=== PATIENT | male | born 1970 | race Two or more races ===

== ENCOUNTER 2023-11-14 13:29 | Inpatient (IN) | payer SELFPAY ==
[~2023-11-14] VITALS: Ht 167.6 cm; Wt 76.9 kg
[2023-11-14] MEDS ORDERED: SODIUM CHLORIDE 0.9% 1,000 ML IV ONE (13:45)
[2023-11-14 14:24] LABS: BASOPHILS % 0.3 % (0.0-2.0); EOSINOPHILS % 7.1 % (0.0-5.0); HEMATOCRIT. 43.5 % (42.0-52.0); HEMOGLOBIN. 15.3 g/dL (14.0-18.0); LYMPHOCYTES % 38.7 % (20.0-50.0); MEAN CORPUSCULAR HEMOGLOBIN 32.4 pg (28.0-32.0); MEAN CORPUSCULAR HGB CONC 35.2 g/dL (31.0-37.0); MEAN CORPUSCULAR VOLUME 92.1 fL (80.0-94.0); MEAN PLATELET VOLUME 8.7 fl (7.4-10.4); NEUTROPHILS % 48.9 % (40.0-76.0); PLATELET 379 x1000/uL (130-400); RED BLOOD CELL COUNT 4.73 mill/uL (4.7-6.1); RED CELL DISTRIBUTION WIDTH 13.1 % (11.6-14.6); WHITE BLOOD COUNT 10.2 x1000/uL (4.5-11.0)
[2023-11-14 15:16] LABS: ALANINE AMINOTRANSFERASE 35 IU/L (10-49); ALBUMIN 3.8 g/dL (3.2-4.8); ASPARTATE AMINOTRANSFERASE 22 IU/L (<34); BILIRUBIN TOTAL 0.2 mg/dL (0.1-1.0); CALCIUM 8.9 mg/dL (8.7-10.4); CARBON DIOXIDE 23 mEq/L (21-32); CHLORIDE 107 mEq/L (98-107); GLUCOSE 182 mg/dL (70-105); POTASSIUM 3.2 mEq/L (3.5-5.1); PROTEIN TOTAL 6.9 g/dL (6.0-8.3); SODIUM 140 mEq/L (136-145); TROPONIN I HIGH SENSITIVITY 22 ng/L (3.0-53); UREA NITROGEN BLOOD 12 mg/dL (9-23)
[2023-11-14] MEDS ORDERED: ACETAMINOPHEN 325MG TABLET PO PRN (18:00)
[2023-11-14] MEDS ORDERED: MAGNESIUM/ALUMINUM HYDROXIDE/SIMETHICONE 30ML UDC PO PRN (18:00)
[2023-11-14] MEDS ORDERED: GUAIFENESIN 200MG/10ML SUGAR FREE UDC PO PRN (18:00)
[2023-11-14] MEDS ORDERED: METHYLPREDNISOLONE SOD SUCC 125MG/2ML (ACT-O-VIAL) IV NR (18:00)
[2023-11-14] MEDS ORDERED: ONDANSETRON HCL 4MG/2ML INJ IV PRN (18:00)
[2023-11-14] MEDS ORDERED: DIPHENHYDRAMINE 50MG/ML VIAL IV PRN (18:00)
[2023-11-14] MEDS ORDERED: EPINEPHRINE 1:1000 1 MG/ML AMP IM PRN (18:15)
[2023-11-14 19:02] LABS: TROPONIN I HIGH SENSITIVITY 278 ng/L (3.0-53)
[2023-11-14] MEDS ORDERED: ENOXAPARIN 40MG/0.4ML SYR SUBCUT SCH (20:00)
[2023-11-14] MEDS ORDERED: KCL 20MEQ/100ML PREMIX 100 ML IV SCH (20:00)
[2023-11-14 21:30] VITALS: BP 128/77; PULSE 87; RESP 18; TEMP 96.6; TEMP 96.9
[2023-11-14] MEDS: FAMOTIDINE 20MG/2ML VIAL IV SCH (23:32)
[2023-11-15] VITALS: BP 121/88; PULSE 107; RESP 22; TEMP 96.8
[2023-11-15] MEDS ORDERED: NIFE20CA MT (02:28)
[2023-11-15] MEDS ORDERED: OMEP10CA5 MT (02:28)
[2023-11-15] MEDS ORDERED: LORA-985 MT (02:28)
[2023-11-15 04:00] VITALS: BP 123/54; PULSE 55; RESP 18; TEMP 97.7
[2023-11-15] MEDS: IPRATROPIUM/ALBUTEROL 0.5-3(2.5)MG/3ML NEB HHN SCH ×2 (06:00→12:00)
[2023-11-15 06:45] LABS: BASOPHILS % 0.1 % (0.0-2.0); EOSINOPHILS % 0.1 % (0.0-5.0); HEMATOCRIT. 43.3 % (42.0-52.0); HEMOGLOBIN. 14.7 g/dL (14.0-18.0); LYMPHOCYTES % 22.4 % (20.0-50.0); MEAN CORPUSCULAR HEMOGLOBIN 31.6 pg (28.0-32.0); MEAN CORPUSCULAR HGB CONC 34.1 g/dL (31.0-37.0); MEAN CORPUSCULAR VOLUME 92.8 fL (80.0-94.0); MEAN PLATELET VOLUME 9.1 fl (7.4-10.4); MONOCYTES % 0.8 % (2.0-8.0); NEUTROPHILS % 76.6 % (40.0-76.0); PLATELET 358 x1000/uL (130-400); RED BLOOD CELL COUNT 4.66 mill/uL (4.7-6.1); RED CELL DISTRIBUTION WIDTH 13.4 % (11.6-14.6); WHITE BLOOD COUNT 7.2 x1000/uL (4.5-11.0)
[2023-11-15 07:04] LABS: ALANINE AMINOTRANSFERASE 29 IU/L (10-49); ALBUMIN 3.8 g/dL (3.2-4.8); ASPARTATE AMINOTRANSFERASE 16 IU/L (<34); BILIRUBIN TOTAL 0.4 mg/dL (0.1-1.0); CARBON DIOXIDE 26 mEq/L (21-32); CHLORIDE 109 mEq/L (98-107); CHOLESTEROL 143 mg/dL (<200); CREATINE KINASE 70 IU/L (46-171); CREATININE 0.7 mg/dL (0.6-1.3); GLUCOSE 142 mg/dL (70-105); HDL CHOLESTEROL 20 mg/dL (>55); LDL CHOLESTEROL 121 mg/dL (5-100); POTASSIUM 4.4 mEq/L (3.5-5.1); PROTEIN TOTAL 6.4 g/dL (6.0-8.3); SODIUM 140 mEq/L (136-145); T4 FREE 1.07 ng/dL (0.89-1.76); THYROID STIMULATING HORMONE 0.27 uIU/mL (0.55-4.78); TRIGLYCERIDE 170 mg/dL (0-150); UREA NITROGEN BLOOD 10 mg/dL (9-23)
[2023-11-15] MEDS: FAMOTIDINE 20MG/2ML VIAL IV SCH (10:26)
[2023-11-15 12:18] VITALS: BP 142/76; PULSE 75; TEMP 98; O2SAT 98
[2023-11-15] MEDS ORDERED: PANT40SU PO (12:38)
[2023-11-15] MEDS ORDERED: LORA10TA7 MT (12:38)
[2023-11-15] MEDS ORDERED: PRED10TA23 MT (12:52)
== END 2023-11-15 14:15 | disposition home or self-care (01) | DRG 811 ==
LOC: ER 13:29 → EDBEDREQ 14:09 → 8WST 16:16 → EDBEDREQTM 16:24 → EDBEDREQ 16:24
PROVIDERS: ADMIT Preventive Medicine Clinical Informatics; ATTEND Preventive Medicine Clinical Informatics
DX: T78.2XXA Anaphylactic shock, unspecified, initial encounter (principal); E87.6 Hypokalemia; R07.89 Other chest pain; I10 Essential (primary) hypertension; F17.210 Nicotine dependence, cigarettes, uncomplicated; R73.9 Hyperglycemia, unspecified; X58.XXXA Exposure to other specified factors, initial encounter; Z87.19 Personal history of other diseases of the digestive system; Z79.899 Other long term (current) drug therapy; Z82.49 Family history of ischemic heart disease and other diseases of the circulatory system
CPT/HCPCS: 36415; 71045; 80053; 80061; 82550; 83036; 83735; 83880; 84100; 84439; 84443; 84481; 84484; 85025; 93005; 94640; 99285; J1650; J2930; J3480; J3490; J7030